=== PATIENT | female | born 1995 ===

== ENCOUNTER 2023-04-24 09:29 | Day surgery (SDC) | payer OTHER ==
[~2023-04-24] VITALS: Ht 165.1 cm; Wt 124.7 kg
[2023-04-24 10:09] VITALS: BP 125/73; PULSE 76; TEMP 98.6
[2023-04-24] MEDS ORDERED: SYNTHROID0.075 MG/T PO (10:09)
--- NOTE | 2023-04-24 10:10 | NUR ---
The patient ambulated back to [facility] independently using a steady gait and appeared to tolerate the activity well. Vital signs obtained. Consent signed. 20G IV started in left hand with one stick, LR Infusing without difficulty. Blood obtained from IV start for labs as ordered. Assessment completed. Home medictions reconcilled. Call light is within reach. Warm blanket provided. and infant son brought back to be at her bedside. The patient denies any further needs at this time.
[2023-04-24 10:25] LABS: ALBUMIN 3.7 gm/dL (3.5-5.0); BILIRUBIN,TOTAL 0.3 mg/dL (0.2-1.2); CALCIUM 10.4 mg/dL (8.4-10.2); CREATININE, serum 0.81 mg/dL (0.57-1.11); TOTAL PROTEIN 7.2 gm/dL (6.2-8.1)
[2023-04-24] MEDS ORDERED: NORCO 325 MG-51 TAB PO (12:57)
[2023-04-24 13:20] VITALS: BP 130/73; PULSE 92; TEMP 98.6
[2023-04-24 13:35] VITALS: BP 131/75; PULSE 88
[2023-04-24 13:50] VITALS: BP 125/70; PULSE 73
[2023-04-24 14:05] VITALS: BP 121/65; PULSE 69
--- NOTE | 2023-04-24 15:13 | NUR ---
1320-REPORT OBTAINED BY SLAVA SIMPSON. PATIENT ARRIVED TO [facility] [facility] [place]IA CART, ALERT AND ORIENTED ON ARRIVAL. PATIENT REPORTS PAIN 2/10, DENIES NAUSEA. DRESSING SITES CDI. VITAL SIGNS TAKEN, VSS. UPDATE GIVEN TO PATIENT AND SPOUSE AT BEDSIDE. PATIENT TOLERATING ICE CHIPS WITHOUT COMPLAINT. 1350-VSS, PATIENT DENIES COMPLAINTS AT THIS TIME. ADDITIONAL PO INTAKE PROVIDED. 1400-PATIENT NOTED TO HAVE NAUSEA WITH EMESIS, PRN ZOFRAN DOSE REPEATED. 1425-PATIENT REPORTS NAUSEA IMPROVED, TOLERATING PO INTAKE DISCHARGE INSTRUCTIONS REVIEWED WITH PATIENT AND SPOUSE, QUESTIONS INVITED. PATIENT AMBULATED TO BATHROOM WITH SBA, GAIT STEADY. PATIENT DRESSED INDEPENDENTLY. IV CATHETER DISCONTINUED, TIP INTACT. PRESSURE HELD AND BANDAGE APPLIED. PRN PO PAIN MEDICATION PROVIDED PRIOR TO DISCHARGE. 1445-PATIENT DISCHARGED HOME TO [facility] VIA WHEELCHAIR, ACCOMPANIED BY SPOUSE. ALL BELONGINGS AND D/C PAPERWORK SENT WITH PT.
== END 2023-04-24 14:45 | disposition home or self-care (01) ==
LOC: SDCO 09:29
PROVIDERS: Surgery
DX: K80.10 Calculus of gallbladder with chronic cholecystitis without obstruction (principal); E66.01 Morbid (severe) obesity due to excess calories; Z68.42 Body mass index [BMI] 45.0-49.9, adult
CPT/HCPCS: J0690; J2405; J2704; J3010; J7120